=== PATIENT | female | born 1975 | race African-American/Black ===

== ENCOUNTER 2018-06-14 19:12 | Emergency (ER) ==
[2018-06-14 19:15] VITALS: BP 127/88; TEMP 98.1; BMI 23.0
[2018-06-14] MEDS ORDERED: TORADOL IM STA (19:57)
[2018-06-14] MEDS ORDERED: STADOL IM STA (19:57)
[2018-06-14] MEDS ORDERED: NORFLEX IM STA (19:57)
--- NOTE | 2018-06-14 21:22 | CT ---
EXAM: CT scan brain without contrast HISTORY: Headache COMPARISON: CT scan brain 09/26/2013 FINDINGS: Contiguous axial images obtained from the skull base to the convexities without contrast u tilizing 5-mm collimation. Sagittal and coronal reconstructions were imaged and reviewed.. The vent ricles and CSF spaces are within normal limits. There are no acute intracranial findings. The visu alized paranasal sinuses and mastoid air cells are the calvarium is intact. IMPRESSION: No acute intracranial findings
--- NOTE | 2018-06-14 21:25 | CT ---
EXAM: CT cervical spine. HISTORY: Neck pain, headache. TECHNIQUE: CT cervical spine without contrast. Detailed axial sections. Coronal and sagittal re-fo rmations. COMPARISON: None FINDINGS: No fracture or subluxation. Normal vertebral body height. Facet joints are covered. No noticeable scoliosis. Lateral masses of C1 and C2 are normally aligned and the odontoid process is intact. 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 Mild diff use degenerative disc disease. Paraspinal soft tissues are grossly unremarkable. IMPRESSION: 1. Mild diffuse degenerative disc disease. 2. 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
--- NOTE | 2018-06-14 21:29 | ED.PDOC ---
General ED Provider: Dr. YUNI BRAUN-PAULINE ELIZABETH Chief Complaint: Headache Stated Complaint: NANA GOT A HEADACHE FOR OVER A WEEK AND IT STARTS IN MY NECK-- IT WORSE WITH MOVING MY NECK Time Seen by Physician: 19:20 Mode of Arrival: Walk-In Information Source: Patient Exam Limitations: No limitations Nursing and Triage Documentation Reviewed and Agree: Yes Does patient meet sepsis criteria?: No System Inflammatory Response Syndrome: Not Applicable Sepsis Protocol: For patient's 13 years and over: Temp is 96.8 and below OR 101 and greater Pulse >90 BPM Resp >20/minute Acutely Altered Mental Status Are patient's symptoms suggestive of a new infection, such as: -Pneumonia -Skin, Soft Tissue -Endocarditis -UTI -Bone, Joint Infection -Implantable Device -Acute Abdominal Infection -Wound Infection -Meningitis -Blood Stream Catheter Infection -Unknown Neurological Complaint Exam - Headache Complaint/Exam Onset: Gradual Duration: ONE WEEK Symptoms Are: Still present Timing: Constant Episodes Lasting: Days Worst Headache Ever: No Initial Severity: Mild Current Severity: Moderate Location: Diffuse Character: Reports: Dull, Throbbing Aggravating: Reports: None Alleviating: Reports: None Associated Signs and Symptoms: Reports: Neck pain, Neck stiffness Related History: Reports: Similar episode Related Surgical History: Reports: None SAH Risk Factors: Reports: None Meningitis Risk Factors: Reports: None SDH Risk Factors: Reports: None Temporal Arteritis Risk Factors: Reports: Female Normal Head CT Within Last 12 Months: No Fundoscopic Exam: Present: Normal Findings Papilledema Present: No Sinus Tenderness: Present: None TMJ Tenderness: Present: None Glascow Coma Scale (see protocol): 15 Meningeal Signs Positive: No Pain on Passive Flexion-Positive Kernig's: No ROM Limited In: No Limitiations Focal Weakness: Present: None Focal Sensory Loss: Present: None Gait: Normal Nystagmus Present: No Gag Reflex Present: Yes [id number]: Normal Findings Romberg Test Positive: No Babinski Sign: Negative Right, Negative Left Heel to Toe Normal: Yes Differential Diagnoses: Migraine, Tension Headache Review of Systems - Review Of Systems Constitutional: Reports: No symptoms Eyes: Reports: No symptoms Ears, Nose, Mouth, Throat: Reports: No symptoms Respiratory: Reports: No symptoms Cardiac: Reports: No symptoms GI: Reports: No symptoms : Reports: No symptoms Musculoskeletal: Reports: Muscle pain, Neck pain Skin: Reports: No symptoms Neurological: Reports: Headache Endocrine: Reports: No symptoms Hematologic/Lymphatic: Reports: No symptoms All Other Systems: Reviewed and Negative Past Medical History - Past Medical History Previously Healthy: Yes Endocrine: Reports: Unknown Cardiovascular: Reports: Unknown Respiratory: Reports: Unknown Hematological: Reports: Unknown Gastrointestinal: Reports: Unknown Genitourinary: Reports: Unknown Neuro/Psych: Reports: Unknown Musculoskeletal: Reports: Unknown Cancer: Reports: Unknown Last Menstrual Period: 05/29/18 - Surgical History General Surgical History: Reports: Unknown - Family History Family History: Reports: Unknown - Social History Smoking Status: Current every day smoker Hx Substance Use: No Alcohol Screening: None - Immunizations Tetanus Shot up to Date: Yes Physical Exam - Physical Exam Appearance: Well-appearing Eyes: JOSÉ MANUEL, EOMI, Conjunctiva clear ENT: Ears normal, Nose normal, Oropharynx normal Neck: Supple Respiratory: Airway patent, Breath sounds clear, Breath sounds equal, Respirations nonlabored Cardiovascular: RRR GI/: Soft, Nontender, No masses, Bowel sounds normal, No Organomegaly Musculoskeletal: Limited ROM Skin: Warm Neurological: Sensation intact, Motor intact, Reflexes intact, Cranial nerves intact, Alert, Oriented Psychiatric: Affect appropriate, Mood appropriate Interpretation - Radiology Interpretation Radiology Interpretation By: Radiologist Radiology Results: Positive Exam Interpreted: CT Scan Re-Evaluation - Re-Evaluation Time of Re-Evaluation: 21:30 Status: Improved Vital Signs Stable: Yes Pain Level: 1 Appearance: NAD Lungs: Clear Skin: Warm and Dry Neuro: Alert and Oriented X3 CV: RRR Critical Care Note - Critical Care Note Total Time (mins): 0 Course - Course Hematology/Chemistry: 06/14/18 20:04 06/14/18 20:04 Orders, Labs, Meds: Lab Review 06/14/18 06/14/18 06/14/18 20:04 20:04 20:04 WBC 8.20 RBC 4.77 Hgb 13.9 Hct 39.6 MCV 83.0 MCH 29.1 MCHC 35.1 RDW Coeff of Arely 12.1 Plt Count 328 Immature Gran % (Auto) 0.2 Neut % (Auto) 58.4 Lymph % (Auto) 30.1 Richardson % (Auto) 8.7 Eos % (Auto) 2.1 Baso % (Auto) 0.5 Immature Gran # (Auto) 0.0 Neut # (Auto) 4.8 Lymph # (Auto) 2.5 Richardson # (Auto) 0.7 Eos # (Auto) 0.2 Baso # (Auto) 0.0 ESR 17 Sodium 138.1 Potassium 3.76 Chloride 104.6 Carbon Dioxide 24.7 Anion Gap 12.56 BUN 13.3 Creatinine 0.88 Estimated GFR (MDRD) 86.00 BUN/Creatinine Ratio 15.11 Glucose 104.1 Calcium 9.57 Total Bilirubin 0.28 AST 19.9 ALT 12.5 Alkaline Phosphatase 68.5 Total Protein 7.96 Albumin 4.29 Globulin 3.67 Albumin/Globulin Ratio 1.16 Serum , Qual Negative Orders Category Date Time Status CBC W/ AUTO DIFF Stat LAB 06/14/18 20:04 Completed COMPREHENSIVE METABOLIC PANEL Stat LAB 06/14/18 20:04 Completed ESR Stat LAB 06/14/18 20:04 Completed SERUM Stat LAB 06/14/18 20:04 Completed Butorphanol Tartrate [Stadol] MEDS 06/14/18 19:57 Discontinued 2 mg IM ONCE STA Ketorolac Tromethamine [Toradol] MEDS 06/14/18 19:57 Discontinued 60 mg IM ONCE STA Orphenadrine Citrate [Norflex] MEDS 06/14/18 19:57 Discontinued 60 mg IM ONCE STA CT CERVICAL SPINE W/O CONTRAST Stat RADS 06/14/18 19:[address] HEAD W/O CONTRAST Stat RADS 06/14/18 19:56 Completed Medications Discontinued Medications Generic Name Dose Route Start Last Admin Trade Name Freq PRN Reason Stop Dose Admin Butorphanol Tartrate 2 mg 06/14/18 19:57 06/14/18 20:10 Stadol IM 06/14/18 19:58 2 mg ONCE STA Administration Ketorolac Tromethamine 60 mg 06/14/18 19:57 06/14/18 20:11 Toradol IM 06/14/18 19:58 60 mg ONCE STA Administration Orphenadrine Citrate 60 mg 06/14/18 19:57 06/14/18 20:10 Norflex IM 06/14/18 19:58 60 mg ONCE STA Administration Vital Signs: Temp Pulse Resp BP Pulse Ox 06/14/18 19:12 98.1 F 106 H 18 127/88 98 Departure - Departure Time of Disposition: 21:30 Disposition: HOME SELF-CARE Discharge Problem: Neck pain Headache Qualifiers: Headache type: tension-type Headache chronicity pattern: acute headache Intractability: not intractable Qualified Code(s): G44.209 - Tension-type headache, unspecified, not intractable Instructions: Tension Headache (ED) Condition: Good Pt referred to PMD for follow-up: Yes IPMP verified?: No Additional Instructions: NORFLEX 100MG Q 12HRS PRN #10--F/U WTIH PCP Allergies/Adverse Reactions: Allergies aspirin Adverse Reaction (Verified 06/14/18 19:15) Penicillins Adverse Reaction (Verified 06/14/18 19:15) Home Medications: Ambulatory Orders 1 [No Reported Medications] 09/01/13 Disposition Discussed With: Patient, Family
== END 2018-06-14 21:49 | disposition home or self-care (01) ==
LOC: ED 19:12
DX: G44.209 Tension-type headache, unspecified, not intractable (principal); M54.2 Cervicalgia; F17.210 Nicotine dependence, cigarettes, uncomplicated
CPT/HCPCS: 36415; 80053; 84703; 85025; 85651; 96372; 99284

== ENCOUNTER 2018-07-15 15:22 | Emergency (ER) ==
[2018-07-15 15:31] VITALS: BP 139/83; TEMP 97.4; BMI 24.7
== END 2018-07-15 19:09 | disposition left against medical advice (07) ==
LOC: ED 15:22
DX: J02.9 Acute pharyngitis, unspecified (principal); R51 Headache; R50.9 Fever, unspecified

== ENCOUNTER 2018-07-16 14:14 | Emergency (ER) ==
[2018-07-16 14:21] VITALS: BP 142/91; TEMP 97.8; BMI 24.5
--- NOTE | 2018-07-16 15:50 | ED.PDOC ---
General ED Provider: Dr. DALLIN CARPENTER Chief Complaint: Respiratory Complaint Stated Complaint: cough sore throat Time Seen by Physician: 14:20 (seen with lalito at all times ) Mode of Arrival: Walk-In Information Source: Patient Exam Limitations: No limitations Primary Care Provider: KRISH KEMP Nursing and Triage Documentation Reviewed and Agree: Yes Does patient meet sepsis criteria?: No System Inflammatory Response Syndrome: Not Applicable Sepsis Protocol: For patient's 13 years and over: Temp is 96.8 and below OR 101 and greater Pulse >90 BPM Resp >20/minute Acutely Altered Mental Status Are patient's symptoms suggestive of a new infection, such as: -Pneumonia -Skin, Soft Tissue -Endocarditis -UTI -Bone, Joint Infection -Implantable Device -Acute Abdominal Infection -Wound Infection -Meningitis -Blood Stream Catheter Infection -Unknown EENT Complaint Exam - Throat Complaint/Exam Onset/Duration: 2 days Symptoms Are: Still present Timimg: Constant Initial Severity: Moderate Current Severity: Mild Aggravating: Reports: Eating Alleviating: Reports: None Associated Signs and Symptoms: Reports: Chills, Cough, Nasal congestion. Denies : Fever, Dysphagia, Drooling, Foreign body sensation, Wheezing, Hoarseness, Sinus discomfort, Difficulty breathing, Lethargy, Irritability, Decreased activity, Vomiting, Diarrhea, Decreased hearing, Ear drainage Uvula Midline: Yes Juana-tonsillar Fluctuence: No Scarlatinaform Rash Present: No Lesions: Absent: Lip, Gums, Tongue, Buccal Mucosa, Pharynx Exanthem: Absent: Lip, Gums, Tongue, Buccal Mucosa, Pharynx Vesicles: Absent: Lip, Gums, Tongue, Buccal Mucosa, Pharynx Stridor Present: No Sinus Tenderness Present: No Tonsillar Hypertrophy Present: No Tonsillar Exudate Present: No Juana-tonsillar Swelling Present: No Adenopathy Present: No Splenomegaly Present: No Differential Diagnoses: Influenza, Pharyngitis Review of Systems - Review Of Systems Constitutional: Reports: Malaise Eyes: Reports: No symptoms Ears, Nose, Mouth, Throat: Reports: Throat pain Respiratory: Reports: Cough Cardiac: Reports: No symptoms GI: Reports: No symptoms : Reports: No symptoms Musculoskeletal: Reports: No symptoms Skin: Reports: No symptoms Neurological: Reports: No symptoms Endocrine: Reports: No symptoms Hematologic/Lymphatic: Reports: No symptoms All Other Systems: Reviewed and Negative Past Medical History - Past Medical History Previously Healthy: Yes Endocrine: Reports: Unknown Cardiovascular: Reports: Unknown Respiratory: Reports: Unknown Hematological: Reports: Unknown Gastrointestinal: Reports: Unknown Genitourinary: Reports: Unknown Neuro/Psych: Reports: Unknown Musculoskeletal: Reports: Unknown Cancer: Reports: Unknown Last Menstrual Period: yesterday - Surgical History General Surgical History: Reports: Unknown - Family History Family History: Reports: Unknown - Social History Smoking Status: Current every day smoker, Light tobacco smoker Hx Substance Use: No Alcohol Screening: None Physical Exam - Physical Exam Appearance: Well-appearing, No pain distress, Well-nourished Eyes: JOSÉ MANUEL, EOMI, Conjunctiva clear ENT: Ears normal, Nose normal, Oropharynx normal Respiratory: Airway patent, Breath sounds clear, Breath sounds equal, Respirations nonlabored Cardiovascular: RRR, Pulses normal, No rub, No murmur GI/: Soft, Nontender, No masses, Bowel sounds normal, No Organomegaly Musculoskeletal: Normal strength, ROM intact, No edema, No calf tenderness Skin: Warm, Dry, Normal color Neurological: Sensation intact, Motor intact, Reflexes intact, Cranial nerves intact, Alert, Oriented Psychiatric: Affect appropriate, Mood appropriate Critical Care Note - Critical Care Note Total Time (mins): 0 Course - Course Orders, Labs, Meds: Lab Review 07/16/18 12:20 Influ A Molecular Assay Negative by naat Influ B Molecular Assay Negative by naat Orders Category Date Time Status FLU A/B MOLECULAR Stat LAB 07/16/18 12:20 Completed MOLECULAR GROUP A STREP Stat LAB 07/16/18 12:20 Completed Vital Signs: Temp Pulse Resp BP Pulse Ox 07/16/18 14:15 97.8 F 92 H 20 142/91 H 98 Departure - Departure Time of Disposition: 15:49 Disposition: HOME SELF-CARE Discharge Problem: Viral syndrome Instructions: Viral Syndrome (ED) Condition: Good Pt referred to PMD for follow-up: Yes IPMP verified?: No Additional Instructions: Please call your Family Physician as soon as possible to schedule a follow-up appointment. Allergies/Adverse Reactions: Allergies aspirin Adverse Reaction (Verified 07/16/18 14:20) Penicillins Adverse Reaction (Verified 07/16/18 14:20) Home Medications: Ambulatory Orders 1 [No Reported Medications] 09/01/13
== END 2018-07-16 16:06 | disposition home or self-care (01) ==
LOC: ED 14:14
DX: B34.9 Viral infection, unspecified (principal); F17.210 Nicotine dependence, cigarettes, uncomplicated
CPT/HCPCS: 87502; 87651; 99283

== ENCOUNTER 2018-09-23 21:34 | Emergency (ER) ==
[2018-09-23 21:42] VITALS: BP 123/89; TEMP 98; BMI 24.6
--- NOTE | 2018-09-23 22:34 | ED.PDOC ---
General ED Provider: Dr. YUNI BELLA MD Chief Complaint: Sore Throat Stated Complaint: sore throat cough Time Seen by Physician: 22:25 Mode of Arrival: Walk-In Information Source: Patient Exam Limitations: No limitations Primary Care Provider: KRISH KEMP Nursing and Triage Documentation Reviewed and Agree: Yes Does patient meet sepsis criteria?: No If yes, has appropriate treatment been initiated?: Yes System Inflammatory Response Syndrome: Not Applicable Sepsis Protocol: For patient's 13 years and over: Temp is 96.8 and below OR 101 and greater Pulse >90 BPM Resp >20/minute Acutely Altered Mental Status Are patient's symptoms suggestive of a new infection, such as: -Pneumonia -Skin, Soft Tissue -Endocarditis -UTI -Bone, Joint Infection -Implantable Device -Acute Abdominal Infection -Wound Infection -Meningitis -Blood Stream Catheter Infection -Unknown Review of Systems - Review Of Systems Constitutional: Reports: Fever Eyes: Reports: No symptoms Ears, Nose, Mouth, Throat: Reports: Nose discharge Respiratory: Reports: Cough Cardiac: Reports: No symptoms GI: Reports: No symptoms : Reports: No symptoms Musculoskeletal: Reports: No symptoms Skin: Reports: No symptoms Neurological: Reports: No symptoms Endocrine: Reports: No symptoms Hematologic/Lymphatic: Reports: No symptoms All Other Systems: Reviewed and Negative Past Medical History - Past Medical History Previously Healthy: Yes Endocrine: Reports: Unknown Cardiovascular: Reports: Unknown Respiratory: Reports: Unknown Hematological: Reports: Unknown Gastrointestinal: Reports: Unknown Genitourinary: Reports: Unknown Neuro/Psych: Reports: Unknown Musculoskeletal: Reports: Unknown Cancer: Reports: Unknown Last Menstrual Period: 2 weeks ago - Surgical History General Surgical History: Reports: Unknown - Family History Family History: Reports: Unknown - Social History Smoking Status: Current every day smoker, Light tobacco smoker Hx Substance Use: No Alcohol Screening: None - Immunizations Tetanus Shot up to Date: No (unsure) Physical Exam - Physical Exam Appearance: Ill-appearing Eyes: JOSÉ MANUEL, EOMI, Conjunctiva clear ENT: Ears normal, Nose normal, Oropharynx normal Neck: Supple Respiratory: Airway patent, Breath sounds clear, Breath sounds equal, Respirations nonlabored Cardiovascular: Tachycardia GI/: Soft, Nontender, No masses, Bowel sounds normal, No Organomegaly Musculoskeletal: Normal strength Skin: Warm, Dry, Normal color Neurological: Sensation intact, Motor intact, Reflexes intact, Cranial nerves intact, Alert, Oriented Psychiatric: Affect appropriate, Mood appropriate Critical Care Note - Critical Care Note Total Time (mins): 0 Course - Course Vital Signs: Temp Pulse Resp BP Pulse Ox 09/23/18 21:36 98 F 119 H 20 123/89 97 Departure - Departure Time of Disposition: 23:00 Disposition: HOME SELF-CARE Discharge Problem: Bronchitis Condition: Good Pt referred to PMD for follow-up: Yes IPMP verified?: No Additional Instructions: Follow up with your PCP Allergies/Adverse Reactions: Allergies aspirin Adverse Reaction (Verified 09/28/18 20:32) Vomiting Penicillins Adverse Reaction (Verified 09/28/18 20:32) Hives Home Medications: Ambulatory Orders Chlorpheniramine Maleate [Chlortabs] 4 mg PO DAILY 09/28/18
[2018-09-23] MEDS ORDERED: SOLU-MEDROL 125 MG IM STA (22:35)
== END 2018-09-23 23:14 | disposition home or self-care (01) ==
LOC: ED 21:34
DX: J40 Bronchitis, not specified as acute or chronic (principal); F17.210 Nicotine dependence, cigarettes, uncomplicated
CPT/HCPCS: 87651; 96372; 99283

== ENCOUNTER 2018-09-28 20:20 | Emergency (ER) ==
[2018-09-28 20:35] VITALS: BP 160/103; TEMP 99.4; BMI 24.7
--- NOTE | 2018-09-28 20:59 | CT ---
EXAM: CT of the sinuses without contrast History: Persistent cough and sinus drainage. Technique: Multiplanar CT images through the sinuses were obtained without the administration of IV contrast Findings: No acute fracture or dislocation. The 2 cm mucous retention cyst or polyp within the righ t maxillary sinus. There is mucosal thickening and fluid within the left maxillary sinus with partia l occlusion of the left infundibulum. Mild to moderate mucosal thickening of the right frontal sinus . Sphenoid sinuses are clear. Minimal mucosal thickening of the ethmoid air cells. Mastoid air hayes ls are clear. Orbits are intact. The visualized intracranial contents are unremarkable. Surroundin g soft tissues demonstrate no acute findings. Nasal septum is mildly undulating. Impression: Paranasal sinusitis as described above with acute component in the left maxillary sinus.
--- NOTE | 2018-09-28 21:00 | CT ---
EXAM: CT scan of the chest without contrast HISTORY: Of persistent cough TECHNIQUE: Helical imaging of the chest was performed without contrast. 5 mm thin axial images and coronal and sagittal reconstructions were provided for interpretation. Comparison none. FINDINGS: The heart is normal size. No mediastinal abnormalities are seen. Lungs are clear. No ly tic or blastic lesions are seen within the osseous structures. IMPRESSION: No acute abnormalities are seen within the thorax.
--- NOTE | 2018-09-28 21:04 | ED.PDOC ---
General ED Provider: Dr. YUNI BRAUN-ER Chief Complaint: Cough Stated Complaint: sarah got sinus drainage and cough Time Seen by Physician: 20:30 Mode of Arrival: Walk-In Information Source: Patient Exam Limitations: No limitations Primary Care Provider: KRISH KEMP Nursing and Triage Documentation Reviewed and Agree: Yes Does patient meet sepsis criteria?: No System Inflammatory Response Syndrome: Not Applicable Sepsis Protocol: For patient's 13 years and over: Temp is 96.8 and below OR 101 and greater Pulse >90 BPM Resp >20/minute Acutely Altered Mental Status Are patient's symptoms suggestive of a new infection, such as: -Pneumonia -Skin, Soft Tissue -Endocarditis -UTI -Bone, Joint Infection -Implantable Device -Acute Abdominal Infection -Wound Infection -Meningitis -Blood Stream Catheter Infection -Unknown Respiratory Complaint Exam - Respiratory Complaint/Exam Onset/Duration: 1 week Symptoms Are: Still present Timing: Intermittent Initial Severity: Mild Current Severity: Mild Location: Nose, Chest Character: Reports: Productive cough Aggravating: Reports: URI Associated Signs and Symptoms: Reports: Fever, URI, Nasal congestion, Sinus discomfort, Sore throat. Denies: Rapid breathing, Dyspnea, Chills Home Oxygen Use: No Recent Stress Test: No Recent Echo/LV Function: No Current Antibiotic Use: No Current Asthma Medication Use: No Respiratory Distress: None Inadequate Respiratory Effort: No Dysphagia Present: No Stridor Present: No JVD Present: No Accessory Muscle Use: No Retractions: Not Present Diminished Breath Sounds: No Sinus Tenderness: Maxillary Grunting Respirations: No Kussmaul Respirations: No Differential Diagnoses: Pneumonia, Bronchitis, Sinusitis, URI Review of Systems - Review Of Systems Constitutional: Reports: No symptoms Eyes: Reports: No symptoms Ears, Nose, Mouth, Throat: Reports: Nose discharge Respiratory: Reports: Cough Cardiac: Reports: No symptoms GI: Reports: No symptoms : Reports: No symptoms Musculoskeletal: Reports: No symptoms Skin: Reports: No symptoms Neurological: Reports: No symptoms Endocrine: Reports: No symptoms Hematologic/Lymphatic: Reports: No symptoms All Other Systems: Reviewed and Negative Past Medical History - Past Medical History Previously Healthy: Yes Endocrine: Reports: Unknown Cardiovascular: Reports: Unknown Respiratory: Reports: Unknown Hematological: Reports: Unknown Gastrointestinal: Reports: Unknown Genitourinary: Reports: Unknown Neuro/Psych: Reports: Unknown Musculoskeletal: Reports: Unknown Cancer: Reports: Unknown Last Menstrual Period: 08/30/18 - Surgical History General Surgical History: Reports: Unknown - Family History Family History: Reports: Unknown - Social History Smoking Status: Former smoker, Light tobacco smoker Hx Substance Use: No Alcohol Screening: None - Immunizations Tetanus Shot up to Date: Yes Physical Exam - Physical Exam Appearance: Well-appearing, No pain distress, Well-nourished Eyes: JOSÉ MANUEL, EOMI, Conjunctiva clear ENT: Rhinorrhea Neck: Supple Respiratory: Rhonchi Cardiovascular: RRR, Pulses normal, No rub, No murmur GI/: Soft, Nontender, No masses, Bowel sounds normal, No Organomegaly Musculoskeletal: Normal strength, ROM intact, No edema, No calf tenderness Skin: Warm, Dry, Normal color Neurological: Sensation intact, Motor intact, Reflexes intact, Cranial nerves intact, Alert, Oriented Psychiatric: Affect appropriate, Mood appropriate Interpretation - Radiology Interpretation Radiology Interpretation By: Radiologist Radiology Results: Positive Exam Interpreted: CT Scan Critical Care Note - Critical Care Note Total Time (mins): 0 Course - Course Hematology/Chemistry: 09/28/18 20:55 09/28/18 20:55 Orders, Labs, Meds: Lab Review 09/28/18 09/28/18 09/28/18 20:36 20:55 20:55 WBC 12.35 H RBC 4.59 Hgb 13.2 Hct 38.4 MCV 83.7 MCH 28.8 MCHC 34.4 RDW Coeff of Arely 12.0 Plt Count 348 Immature Gran % (Auto) 0.3 Neut % (Auto) 72.5 Lymph % (Auto) 19.0 Bay % (Auto) 7.7 Eos % (Auto) 0.3 Baso % (Auto) 0.2 Immature Gran # (Auto) 0.0 Neut # (Auto) 8.9 H Lymph # (Auto) 2.4 Bay # (Auto) 1.0 Eos # (Auto) 0.0 Baso # (Auto) 0.0 Sodium 135.8 Potassium 3.56 Chloride 100.1 Carbon Dioxide 31.3 H Anion Gap 7.96 BUN 6.7 L Creatinine 0.82 Estimated GFR (MDRD) 94.00 BUN/Creatinine Ratio 8.17 Glucose 107.7 H Calcium 9.43 Total Bilirubin 0.60 AST 18.9 ALT 30.7 Alkaline Phosphatase 65.0 Total Protein 7.80 Albumin 4.34 Globulin 3.46 Albumin/Globulin Ratio 1.25 Influ A Molecular Assay Negative by naat Influ B Molecular Assay Negative by naat Orders Category Date Time Status BLOOD CULTURE (ED ONLY) Stat LAB 09/28/18 20:55 Received CBC W/ AUTO DIFF Stat LAB 09/28/18 20:55 Completed COMPREHENSIVE METABOLIC PANEL Stat LAB 09/28/18 20:55 Completed FLU A/B MOLECULAR Stat LAB 09/28/18 20:36 Completed MOLECULAR GROUP A STREP Stat LAB 09/28/18 20:[address] CHEST W/O CONTRAST Stat RADS 09/28/18 20:[address] SINUSES W/O CONTRAST Stat RADS 09/28/18 20:34 Completed Vital Signs: Temp Pulse Resp BP Pulse Ox 09/28/18 20:25 99.4 F 125 H 22 160/103 H 99 Departure - Departure Time of Disposition: 21:18 Disposition: HOME SELF-CARE Discharge Problem: Acute sinusitis Instructions: Rhinosinusitis (ED) Condition: Good Pt referred to PMD for follow-up: No IPMP verified?: No Additional Instructions: levaquin 500mg q daily #10---flonase nasal sprays one puff each nostril bid --- tessalon perles 200mg tid prn cough 30---- Allergies/Adverse Reactions: Allergies aspirin Adverse Reaction (Verified 09/28/18 20:32) Vomiting Penicillins Adverse Reaction (Verified 09/28/18 20:32) Hives Home Medications: Ambulatory Orders Chlorpheniramine Maleate [Chlortabs] 4 mg PO DAILY 09/28/18 Disposition Discussed With: Patient
== END 2018-09-28 21:23 | disposition home or self-care (01) ==
LOC: ED 20:20
DX: R05 Cough (principal); J06.9 Acute upper respiratory infection, unspecified; R50.9 Fever, unspecified; R09.81 Nasal congestion; J02.9 Acute pharyngitis, unspecified; F17.210 Nicotine dependence, cigarettes, uncomplicated; J01.90 Acute sinusitis, unspecified
CPT/HCPCS: 36415; 80053; 85025; 87040; 87502; 87651; 99283